=== PATIENT | male | born 1995 | race Caucasian/White ===

== ENCOUNTER 2019-02-17 20:31 | Emergency (ER) | payer OTHER ==
[2019-02-17 21:03] VITALS: BP 109/63
[2019-02-17] MEDS ORDERED: ONDANSETRON 4 MG/2 ML VIAL IVP STA (22:03)
[2019-02-17] MEDS ORDERED: SODIUM CHLORIDE 0.9% 500 ML 500 ML IV SCH (22:15)
[2019-02-17 22:26] VITALS: PULSE 101; RESP 18; TEMP 101.4
--- NOTE | 2019-02-17 22:33 | ED ---
General Adult HPI - General Chief complaint: Nausea/Vomiting/Diarrhea Stated complaint: Neck/back pain Time Seen by Provider: 02/17/19 22:01 Source: patient Mode of arrival: ambulatory Limitations: no limitations - Related Data Home Medications Medication Instructions Recorded Confirmed Calcium Carbonate [Tums] 500 mg PO TID PRN 02/17/19 02/17/19 Allergies Allergy/AdvReac Type Severity Reaction Status Date / Time No Known Allergies Allergy Verified 02/17/19 21:44 Review of Systems ROS Statement: Those systems with pertinent positive or pertinent negative responses have been documented in the HPI. ROS Other: All systems not noted in ROS Statement are negative. Past Medical History Past Medical History: No Reported History History of Any Multi-Drug Resistant Organisms: None Reported Past Surgical History: No Surgical Hx Reported Past Psychological History: No Psychological Hx Reported Smoking Status: Never smoker Past Alcohol Use History: Rare Past Drug Use History: None Reported General Exam Limitations: no limitations Course Vital Signs 02/17/19 02/17/19 20:58 22:23 Temperature 101 F H 101.4 F H Pulse Rate 126 H 101 H Respiratory 20 18 Rate Blood Pressure 109/63 O2 Sat by Pulse 97 95 Oximetry Medical Decision Making - Medical Decision Making PAtient was triaged and placed in a room, based on vital signs a sepsis workup was initiated with concern the patient was likely dehydrated. Prior to workup being initiated or patient being evaluated by ER physician the patient reported to the nurse that he was feeling better, his HR had improved and he stated that he would like to go home and take tylenol and drink fluids. Patient then walked out of the ER. Patient was not evaluated by an ER physician. Disposition Clinical Impression: Fever Disposition: Left Against Medical Advice Condition: Undetermined Instructions (If sedation given, give patient instructions): Acute Nausea and Vomiting (ED) Is patient prescribed a controlled substance at d/c from ED?: No Referrals: None,Stated [Primary Care Provider] - 1-2 days
== END 2019-02-17 22:40 | disposition left against medical advice (07) ==
LOC: EC 20:31
DX: R50.9 Fever, unspecified (principal); Z53.20 Procedure and treatment not carried out because of patient's decision for unspecified reasons; R11.2 Nausea with vomiting, unspecified; R19.7 Diarrhea, unspecified; M54.2 Cervicalgia; M54.9 Dorsalgia, unspecified
CPT/HCPCS: 99283